=== PATIENT | female | born 1960 | race Caucasian/White ===

== ENCOUNTER 2018-11-06 12:21 | Emergency (ER) | payer MEDICARE, MEDICAID ==
[~2018-11-06] VITALS: Ht 157.5 cm; Wt 88.9 kg
--- NOTE | 2018-11-06 12:25 | NUR ---
PT [id number] FOR C/O LOWER ABD PAIN WITH NAUSEA AND DYSURIA WHICH ONSET TODAY WHILE BOWLING. RESP EVEN UNLABORED. SKIN WARM DRY. IN ER BED 06. NOTED TACHYCARDIC ON TRIAGE, PLACED ON MONITOR.
[2018-11-06] MEDS ORDERED: ONDANSETRON HCL/PF 4 MG/2 ML VIAL IVP ONE (13:00)
[2018-11-06] MEDS ORDERED: KETOROLAC TROMETHAMINE INJ 30 MG/ML VIAL IV ONE (13:00)
[2018-11-06] MEDS ORDERED: IV NS 0.9% 1,000 ML BAG IV ONE (13:00)
--- NOTE | 2018-11-06 13:00 | NUR ---
IN AND OUT CATH 8FR PERFORMED FOR STERILE URINE SAMPLE PER
[2018-11-06 13:03] LABS: BASOPHILS % (AUTO) 0.5 % (0.0-2.0); HEMATOCRIT 41 % (33-45); HEMOGLOBIN 13.8 g/dL (11.5-14.8); LYMPHOCYTES # (AUTO) 1.3 /CMM (0.8-4.8); LYMPHOCYTES % (AUTO) 23.6 % (20.0-44.0); MEAN CORPUSCULAR HGB CONC 34 g/dl (31.0-36.0); MEAN CORPUSCULAR VOLUME 97 fL (82-100); MONOCYTES # (AUTO) 0.3 /CMM (0.1-1.30); MONOCYTES % (AUTO) 6.2 % (2.0-12.0); NEUTROPHILS # (AUTO) 3.7 /CMM (1.8-8.9); NEUTROPHILS % (AUTO) 69.7 % (43.0-81.0); PLATELET COUNT (AUTO) 197 /CMM (150-450); RED BLOOD CELL COUNT(AUTO) 4.28 MIL/uL (4.0-5.2); WHITE BLOOD COUNT (AUTO) 5.4 K/uL (4.3-11.0)
[2018-11-06 13:12] LABS: CALCIUM, SERUM 8.8 mg/dL (8.5-10.1); CREATININE 0.9 mg/dL (0.6-1.3); POTASSIUM 3.8 mmol/L (3.5-5.1)
[2018-11-06 13:13] LABS: APPEARANCE,URINE Clear (CLEAR); BILIRUBIN,URINE Negative (NEGATIVE); BLOOD, URINE Trace-intact Ery/uL (NEGATIVE); COLOR,URINE Yellow (YELLOW); KETONES,URINE Trace (NEGATIVE); LEUKOCYTE ESTERASE ,URINE Negative (NEGATIVE); NITRITE, URINE Negative (NEGATIVE); PH,URINE 6.5 (5.0-8.0); PROTEIN,URINE Negative (NEGATIVE); UGLUCOSE Negative (NEGATIVE); UROBILINOGEN,URINE 0.2 EU/dL (0.2)
[2018-11-06] MEDS ORDERED: KETOROLAC TROMETHAMINE 15 MG/ML VIAL ONE (13:13)
[2018-11-06] MEDS ORDERED: ONDANSETRON HCL/PF 4 MG/2 ML VIAL ONE (13:13)
[2018-11-06 13:17] LABS: BILIRUBIN,DIRECT 0.1 mg/dL (0.0-0.2); BILIRUBIN,TOTAL 0.3 mg/dL (0.2-1.0); TOTAL PROTEIN, SERUM 6.8 g/dL (6.4-8.2)
[2018-11-06 13:25] LABS: RBC,URINE 0-2 /HPF (0-2)
[2018-11-06 13:26] LABS: BACTERIA,URINE Rare /HPF (None Seen); SQUAMOUS EPITHELIAL CELL,UR Rare /HPF (None Seen); WBC,URINE 0-2 /HPF (0-3)
[2018-11-06] MEDS ORDERED: IV NS 0.9% 250 ML IV ONE (13:54)
[2018-11-06] MEDS ORDERED: CT SWABBABLE VALVE TRANS SET 1 EA INFUS.SET MC ONE (13:54)
[2018-11-06] MEDS ORDERED: IOHEXOL-300 100 ML VIAL IV ONE (13:54)
--- NOTE | 2018-11-06 14:11 | NUR ---
FOLLOWED UP ON CT WITH CONTRAST ORDER; NOTIFIED MD THAT THE ONLY ACCESS SHE HAS IS A 24G ON THE WRIST AND THE PT IS A VERY HARD STICK. RECEIVED VERBAL REPORT TO DO NON-CONTRAST CT INSTEAD. Addendum: 11/06/18 at 1413 by [facility] PT JUST RETURNED FROM CT AND THE TECH REPORTS THEY WERE ABLE TO DO CONTRAST THROUGH THE EXISTING 24G IV. NOTIFIED .
--- NOTE | 2018-11-06 14:36 | NUR ---
PT TOLERATING PO INTAKE
--- NOTE | 2018-11-06 15:23 | NUR ---
Patient discharged to home in stable condition. Written and verbal after care instructions given. Patient verbalizes understanding of instruction. IV removed. Catheter intact and site benign. Pressure and 4x4 applied to site. No bleeding noted. AMBULATORY STEADY GAIT, WITH CAREGIVER.
[2018-11-06 15:24] VITALS: BP 129/82
== END 2018-11-06 15:24 | disposition home or self-care (01) ==
LOC: ER 12:24
DX: N20.0 Calculus of kidney (principal); R11.2 Nausea with vomiting, unspecified; F79 Unspecified intellectual disabilities; F32.9 Major depressive disorder, single episode, unspecified; Z79.899 Other long term (current) drug therapy; Z88.0 Allergy status to penicillin; Z88.2 Allergy status to sulfonamides; Z88.5 Allergy status to narcotic agent
CPT/HCPCS: 36415; 51701; 74177; 80048; 80076; 81001; 83690; 85025; 87086; 96361; 96374; 96375; 99284; A4606; J1885; J2405; J7030; J7050; Q9967; 81000-TC